=== PATIENT | male | born 1950 | race Caucasian/White ===

== ENCOUNTER → 2019-07-24 | Outpatient (CLI) | payer OTHER ==
[~2019-07-24] MED LIST: AMIODARONE HCL400 MG PO; ASA81BEC PO; ATACAND HCT 321 EACH PO; BENICAR40 MG PO; BYSTOLIC10 MG PO; CHLORTHALIDONE25 MG PO; CLINDAMYCIN HC150 MG PO; DILTIAZEM ER180 M2 PO; ELIQUIS5 MG PO; FLEXERIL PO; HYDROCODON-ACE1 EA12 PO; KEFLEX500 M1 PO; NORCO 5-325 TA1 EACH PO; SUPER THERAVIT1 EACH PO; TOPROL XL100 MG PO; TRAMADOL 50 MG50 MG PO; VIBRAMYCIN 100100 MG PO
== END ==
LOC: SJCVC 15:30
PROVIDERS: ATTEND Internal Medicine Cardiovascular Disease
DX: I48.91 Unspecified atrial fibrillation (principal); R94.31 Abnormal electrocardiogram [ECG] [EKG]; G89.29 Other chronic pain; R53.83 Other fatigue; Z82.49 Family history of ischemic heart disease and other diseases of the circulatory system; F17.200 Nicotine dependence, unspecified, uncomplicated

== ENCOUNTER → 2019-07-25 | Outpatient (CLI) | payer OTHER | LOC: SJCVCIMAG 07:26 | PROVIDERS: ATTEND Internal Medicine Cardiovascular Disease | DX: I08.8 Other rheumatic multiple valve diseases (principal); I48.91 Unspecified atrial fibrillation; F17.200 Nicotine dependence, unspecified, uncomplicated ==

== ENCOUNTER → 2019-08-18 | Outpatient (CLI) | payer OTHER ==
[~2019-08-18] MED LIST changes: -AMIODARONE HCL400 MG PO; -ASA81BEC PO; -BENICAR40 MG PO; -DILTIAZEM ER180 M2 PO; -ELIQUIS5 MG PO; -FLEXERIL PO; -HYDROCODON-ACE1 EA12 PO; -KEFLEX500 M1 PO; -SUPER THERAVIT1 EACH PO; -TOPROL XL100 MG PO; -TRAMADOL 50 MG50 MG PO
== END ==
LOC: SJCVCIMAG 09:06
PROVIDERS: ATTEND Internal Medicine Cardiovascular Disease
DX: I48.91 Unspecified atrial fibrillation (principal); I10 Essential (primary) hypertension; F17.200 Nicotine dependence, unspecified, uncomplicated; Z79.899 Other long term (current) drug therapy; Z82.49 Family history of ischemic heart disease and other diseases of the circulatory system

== ENCOUNTER → 2019-08-22 | Outpatient (CLI) | payer OTHER ==
[~2019-08-22] MED LIST changes: +AMIODARONE HCL400 MG PO; +ASA81BEC PO; +BENICAR40 MG PO; +DILTIAZEM ER180 M2 PO; +ELIQUIS5 MG PO; +FLEXERIL PO; +HYDROCODON-ACE1 EA12 PO; +KEFLEX500 M1 PO; +SUPER THERAVIT1 EACH PO; +TOPROL XL100 MG PO; +TRAMADOL 50 MG50 MG PO
== END ==
LOC: LAB 08:00
PROVIDERS: ATTEND Internal Medicine Cardiovascular Disease
DX: Z01.818 Encounter for other preprocedural examination (principal); Z11.59 Encounter for screening for other viral diseases

== ENCOUNTER → 2019-08-30 | Outpatient (CLI) | payer OTHER ==
[~2019-08-30] VITALS: Ht 175.3 cm; Wt 88.0 kg
[~2019-08-30] MED LIST changes: +XARELTO20 MG PO
[2019-08-30 07:23] VITALS: BP 114/66
--- NOTE | 2019-08-30 08:31 | TEE ---
[facility] [place] [address] TRANSESOPHAGEAL ECHOCARDIOGRAM Name: TATO MONTANA Room #: REG [facility]#: [id number] Admission: 08/30/19 Attend Phys: aDrron Kaminski MD, Discharge: Date of : 50 Report #: [id number] THIS REPORT FOR: cc: Steve Sandoval Louis D. DO Lundgren, Craig H. MD [facility] ~ APPROVED REPORT Study performed: 08/30/2019 07:36:16 EXAM: Transesophageal Echocardiogram with Doppler and Cardioversion Patient Location: Out-Patient Status: routine BSA: 2.04 HR: 65 bpm BP: 107/68 mmHg Rhythm: Atrial Fibrillation Other Information Study Quality: Good Indications Atrial Fibrillation Cardioversion. Procedure After obtaining informed consent, patient underwent transesophageal echo in the [employer]. Type of Sedation : Conscious Sedation Sedation was administered by ANNE Suh. Sedation was achieved intravenously with: Versed (50) Fentanyl (4.5) Transesophageal probe was inserted and advanced into esophagus without difficulty by Darron Kaminski MD. Echo enhancement indication: R/O Septal defect. Echo enhancement agent administered: Agitated Saline The BEST was performed without complications. Synchronized Cardioversion acheived with 120 Joules after 1 attempt(s). Throughout the procedure, the blood pressure, pulse oximetry, cardiac rhythm, and rate were monitored. The patient tolerated the procedure without adverse effects. Recovery from conscious sedation was uneventful and vital signs were [facility] [address] [place] [address] TRANSESOPHAGEAL ECHOCARDIOGRAM Name: TATO MONTANA Room #: REG [facility]#: [id number] Admission: 08/30/19 Attend Phys: Darron Kaminski, Discharge: Date of : 50 Report #: [id number]. Left Ventricle The left ventricle is normal size. There is normal LV segmental wall motion. There is normal left ventricular wall thickness. Left ventricular systolic function is normal. LVEF is 55%. Right Ventricle The right ventricle is normal size. The right ventricular systolic function is normal. Atria Left atrium is dilated. No thrombus is visualized in the left atrium or appendage. No shunting noted by contrast bubble injection. Right atrium is dilated. Aortic Valve The aortic valve is mildly sclerotic. Moderate aortic regurgitation. There is no aortic valvular stenosis. Mitral Valve Mild mitral annular calcification. Mild mitral regurgitation. No evidence of mitral valve stenosis. Tricuspid Valve The tricuspid valve is normal in structure. Mild tricuspid regurgitation. Pulmonic Valve The pulmonary valve is normal in structure. Mild pulmonic regurgitation. Great Vessels The aortic root is normal in size. The ascending aorta is normal in size. IVC is normal in size and collapses >50% with inspiration. Pericardium There is no pericardial effusion. <Conclusion> Left ventricular systolic function is normal. LVEF is 55%. Both atria are dilated. No thrombus is visualized in the left atrium or appendage. No shunting noted by contrast bubble injection. [facility] [address] [place] [address] TRANSESOPHAGEAL ECHOCARDIOGRAM Name: TATO MONTANA Room #: REG [facility]#: [id number] Admission: 08/30/19 Attend Phys: Darron Kaminski, Discharge: Date of : 50 Report #: [id number] The aortic valve is mildly sclerotic. Moderate aortic regurgitation, no stenosis. Mild mitral annular calcification. Mild mitral regurgitation. There is no pericardial effusion. Successful cardioversion of atrial fibrillation to sinus rhythm following a single 120 J biphasic synchronous shock <ELECTRONICALLY SIGNED> By: Darron Kaminski MD, [facility] 08/30/19829 9 9 Darron Kaminski MD, [facility] /INF
== END | disposition home or self-care (01) ==
LOC: CATH 06:21
PROVIDERS: ATTEND Internal Medicine
DX: I48.91 Unspecified atrial fibrillation (principal); I08.3 Combined rheumatic disorders of mitral, aortic and tricuspid valves; M54.5 Low back pain; G89.29 Other chronic pain; I10 Essential (primary) hypertension; Z98.890 Other specified postprocedural states; Z79.899 Other long term (current) drug therapy; Z96.651 Presence of right artificial knee joint; Z96.611 Presence of right artificial shoulder joint; Z79.01 Long term (current) use of anticoagulants

== ENCOUNTER → 2019-09-07 | Outpatient (CLI) | payer OTHER | LOC: SJCVC 13:02 | PROVIDERS: ATTEND Internal Medicine Cardiovascular Disease | DX: I49.3 Ventricular premature depolarization (principal); I48.91 Unspecified atrial fibrillation; I10 Essential (primary) hypertension; R94.39 Abnormal result of other cardiovascular function study; F17.200 Nicotine dependence, unspecified, uncomplicated; Z79.82 Long term (current) use of aspirin; Z79.899 Other long term (current) drug therapy; Z82.49 Family history of ischemic heart disease and other diseases of the circulatory system ==

== ENCOUNTER 2019-09-13 12:19 | Inpatient (IN) | payer OTHER ==
[~2019-09-13] VITALS: Ht 177.8 cm; Wt 87.1 kg
[~2019-09-13 12:19] MED LIST changes: -XARELTO20 MG PO
[2019-09-13 12:27] VITALS: BP 140/99
[2019-09-13 13:50] LABS: HEMATOCRIT 41.7 % (42.0-52.0); HEMOGLOBIN 14.3 gm/dL (14.0-18.0); MCHC 34.2 g/dL (28.0-37.0); MCV 105.2 fL (80.0-100.0); RBC 3.96 mil/uL (4.50-6.00); RDW 14.1 % (10.5-14.5)
[2019-09-13 14:00] LABS: CALCIUM 8.8 mg/dL (8.5-10.1); CREATININE 0.7 mg/dL (0.7-1.3); POTASSIUM 4.2 mmol/L (3.5-5.1)
[2019-09-13 14:01] LABS: INR 1.2
[2019-09-13] MEDS ORDERED: XARELTO20 MG PO (14:17)
[2019-09-13 18:33] VITALS: BP 161/85
--- NOTE | 2019-09-13 19:12 | NUR ---
ATTEMPTED TO CALL REPORT, PHONE KEPT RINGING ON THREE DIFFERENT OCCASIONS
[2019-09-13 20:15] VITALS: BP 147/72
[2019-09-13 20:50] VITALS: BP 162/82
--- NOTE | 2019-09-13 20:58 | NUR ---
Pt arrived from ED approx 2029 accompanied by staff and dtr. Dtr wants to stay with pt,but per hospital policy no family members allowed to stay/visit after 7pm. VSS.Pilot Boat Captain notified regarding above,working on transferring pt. Pt resting on cart w/dtr waiting for transfer to another hospital.
--- NOTE | 2019-09-13 22:52 | HC ---
[facility] [place] [address] CONSULTATION Name: TATO MONTANA Room #: 201-P [facility] IN M.R.#: [id number] Admission: 09/13/19 Attend Phys: Cortes Bailon MD Discharge: 09/13/19 Date of : 50 Report #: [id number] THIS REPORT FOR: cc: Steve Sandoval,Pedrito Marcelino MD ~ CC: Thom Sandoval DO DATE OF SERVICE: 09/13/2019 SURGEON: Pedrito Lozano MD REASON FOR CONSULTATION: Epistaxis HISTORY OF PRESENT ILLNESS: The patient is a 69-year-old male presenting to the Emergency Department this afternoon with bilateral epistaxis, beginning at about 7:00 this morning initially on his left. This was controlled initially with insertion of Kleenex. Later, he rubbed his nose and it began bleeding again and then began to bleed out of both sides. He presented to the Emergency Department, kept Rapid, kept Rhino epistaxis balloon anterior, posterior was placed on the left with initial control, but shortly thereafter this began bleeding again on the right. Second anterior, posterior Rapid Rhino balloon was then placed and the bleeding slowed, but did not completely stop. I was called by the physician's assistant media buyer in the Emergency Department to see him. His risk factors include full anticoagulation, on Eliquis for atrial fibrillation. He underwent a cardioversion 2 weeks ago successfully converting to sinus rhythm. The Eliquis was held in the Emergency Department. Upon seeing him, there was still a slight trickle in the throat. Increase was made on the balloons with air with control of the bleeding. I described to the patient and his why these need to be in place for 72 hours to form an adequate fibrin clot while holding anticoagulation to minimize the chance of rebleeding. I have also explained to him why he needs to be hospitalized with bilateral posterior packing and as he is an apnea risk. The patient was given 1 dose of cephalexin in the Emergency Department. 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 [address] [address] CONSULTATION Name: TATO MONTANA Room #: 201-P [facility] IN ..#: [id number] Admission: 09/13/19 Attend Phys: Cortes Bailon MD Discharge: 09/13/19 Date of : 50 Report #: [id number] MEDICATIONS: From home included metoprolol 100 mg every day, olmesartan medoxomil 40 mg daily, diltiazem ER 180 mg a day, amiodarone 400 mg p.o. every day, apixaban 5 mg b.i.d., aspirin 81 mg every day, tramadol 50 mg q.6 hours, cyclobenzaprine 10 mg every day, hydrocodone, multivitamins and cephalexin 500 mg every day prior to dental procedures. ALLERGIES: None. SOCIAL HISTORY: He has a supportive at his side in the Emergency Room. He does not currently smoke, but was a significant smoker in the past. He does use alcohol. REVIEW OF SYSTEMS: He is complaining of the nasal balloons and nasal pain as well as the bleeding and sensation of globus. He has no shortness of breath, no hemoptysis. Remaining 12-point review of systems negative. PHYSICAL EXAMINATION: GENERAL: Shows a well-developed 69-year-old male seen in the Emergency Department with his at his side. VITAL SIGNS: His blood pressure is 140/99, increased to 161/85, O2 sat 96-99% on room air, respiration of 18, pulse is 66, temperature of 97.8. HEENT: Head normocephalic. His pupils are equal, round, reactive to light. Otologic exam, cerumen present. Tympanic membranes appear intact. Nasal exam, bilateral kept Rapid, kept Rhino epistaxis balloons in place. There is a slight trickle on the left. Air was increased on both sides with resolution. Oral cavity, no mucosal lesions, intact dentition. Posterior pharynx did show initially a slight trickle of blood. This stopped with reinflation of the balloons. NECK: Trachea is midline. No adenopathy. NEUROLOGIC: Cranial nerves 2-12 are intact. Motor, sensory and cerebellar exams are normal. LABORATORY DATA: The patient's blood work shows a white count of 5000, hemoglobin of 14.3, hyperchromic macrocytic indices. Electrolytes show sodium of 129, otherwise negative electrolytes. The patient's PT is 12.0 with INR of 1.2. ASSESSMENT: 1. Bilateral epistaxis requiring bilateral anterior and posterior epistaxis balloon placement. This is secondary to anticoagulation, on Eliquis and aspirin. 2. History of atrial fibrillation, status post cardioversion, now in sinus rhythm. If possible, Eliquis and aspirin should be held. 3. Chronic back pain. PLAN: [facility] [address] [place] [address] CONSULTATION Name: TATO MONTANA Room #: 201-P [facility] IN .R.#: [id number] Admission: 09/13/19 Attend Phys: Cortes Bailon MD Discharge: 09/13/19 Date of : 50 Report #: [id number] 1. Reinflation of balloons in ER with control. 2. Admission for telemetry. The patient is at significant risk of apnea with bilateral anterior and posterior epistaxis balloons in place. The patient will need these in place at least 72 hours to affect a formation of a fibrin clot to reduce rebleeding. In the interim, it would be ideal if he was off the Eliquis and aspirin both. 3. I will plan to expand his antibiotic coverage with bilateral packing in place due to risk of iatrogenic sinusitis. 4. I will plan to follow along with you, but we will not plan to necessarily round daily. I will plan to see the patient on Wednesday for removal of the balloons. I have discussed this in detail with the patient and his . I can be called at any time if there is any change in his clinical status. I appreciate the consultation and the ability to share in his care. <ELECTRONICALLY SIGNED> By: Pedrito Lozano MD 09/13/19 [id number] Pedrito Lozano MD /nt
--- NOTE | 2019-09-14 03:14 | NUR ---
UPSET THAT SHE COULD NOT STAY WITH PT. CALLING DR ULLOA ON CELL PHONE. EXPLAINING TO SEVERAL TIMES DID NOT SATISFY HER. NURSING RADIOLOGIC TECH CONTACTED TO MEED PT AND IN CCU.
--- NOTE | 2019-09-14 08:01 | EKG ---
[facility] [place] [address] ELECTROCARDIOGRAM REPORT Name: TATO MONTNAA Room #: [facility] IN M.R.#: [id number] Admission: 09/13/19 Attend Phys: Cortes Bailon MD Discharge: 09/13/19 Date of : 50 Report #: [id number] THIS REPORT FOR: cc: Steve Sandoval Louis D. DO Lundgren, Craig H. MD [facility] ~ THIS REPORT FOR: //name// [facility] ED Test Date: 2019-09-13 Test Time: 18:55:46 Pat Name: TATO MONTANA Department: Room: [facility] Gender: M Buzz[employer] Operator: Fer HUANG : 1950 Requested By: Chloe Cox Order Number: [id number] MD: Darron Kaminski Measurements Intervals [place] Rate: 63 P: -35 HI: 140 QRS: 6 QRSD: 106 T: 32 QT: 442 QTc: 453 Interpretive Statements Sinus rhythm No significant abnormality No previous ECG available for comparison Electronically Signed On 09-14-2019 8:00:54 CDT by Darron Kaminski [email or web address] <ELECTRONICALLY SIGNED> By: Darron Kaminski MD, [facility] 09/14/19 [phone] Darron Kaminski MD, [facility] /EPI
== END 2019-09-13 21:48 | disposition left against medical advice (07) | DRG 813 ==
LOC: ER 12:19 → EROBS 15:04 → 2N 20:27
PROVIDERS: Physician Assistant; ADMIT Internal Medicine; ATTEND Internal Medicine
PROC: 2Y41X5Z Packing of Nasal Region using Packing Material (ICD-10-PCS; principal; 2019-09-13)
DX: D68.32 Hemorrhagic disorder due to extrinsic circulating anticoagulants (principal); E87.1 Hypo-osmolality and hyponatremia; R04.0 Epistaxis; M54.9 Dorsalgia, unspecified; I10 Essential (primary) hypertension; G89.29 Other chronic pain; T45.525A Adverse effect of antithrombotic drugs, initial encounter; I48.0 Paroxysmal atrial fibrillation; M19.90 Unspecified osteoarthritis, unspecified site; Z96.611 Presence of right artificial shoulder joint; Z53.29 Procedure and treatment not carried out because of patient's decision for other reasons; F17.210 Nicotine dependence, cigarettes, uncomplicated; T45.515A Adverse effect of anticoagulants, initial encounter; Z96.651 Presence of right artificial knee joint; Z79.899 Other long term (current) drug therapy; Z79.82 Long term (current) use of aspirin; Z79.01 Long term (current) use of anticoagulants; Y92.89 Other specified places as the place of occurrence of the external cause; Z82.49 Family history of ischemic heart disease and other diseases of the circulatory system; E78.5 Hyperlipidemia, unspecified
CPT/HCPCS: 10081